=== PATIENT | male | born 1980 | race Caucasian/White ===

== ENCOUNTER → 2017-03-11 | Outpatient (CLI) | payer OTHER | LOC: M SMT 09:32 | PROVIDERS: ATTEND Urology | DX: E29.1 Testicular hypofunction (principal) ==

== ENCOUNTER → 2017-04-24 | Outpatient (CLI) | payer OTHER | LOC: M SMT 15:34 | PROVIDERS: ATTEND Urology | DX: E29.1 Testicular hypofunction (principal) ==

== ENCOUNTER → 2017-08-22 | Outpatient (CLI) | payer OTHER | LOC: M LAB 09:01 | PROVIDERS: ATTEND Nurse Practitioner Women's Health | DX: E29.1 Testicular hypofunction (principal) ==

== ENCOUNTER → 2017-11-21 | Outpatient (CLI) | payer OTHER | LOC: M WUC 14:56 | DX: E29.1 Testicular hypofunction (principal) | CPT/HCPCS: 84403 ==

== ENCOUNTER → 2017-11-28 | Outpatient (CLI) | payer OTHER ==
[2017-11-30 08:36] LABS: TESTOSTERONE 1288 NG/DL (241-827)
== END ==
LOC: M WUC 12:25
DX: E29.1 Testicular hypofunction (principal)
CPT/HCPCS: 84403

== ENCOUNTER → 2017-12-04 | Outpatient (CLI) | payer OTHER ==
[2017-12-04 16:39] LABS: HEMATOCRIT 47.5 % (42.0-52.0)
[2017-12-04 16:50] LABS: PROSTATIC SPECIFIC AG MONITOR 0.63 NG/ML (< 4.0)
[2017-12-08 00:08] LABS: TESTOSTERONE FREE (DIRECT) 9.9 pg/mL (8.7-25.1)
== END ==
LOC: M WUC 11:15
DX: E29.1 Testicular hypofunction (principal)
CPT/HCPCS: 84403

== ENCOUNTER → 2017-12-19 | Outpatient (CLI) | payer OTHER ==
[2017-12-21 10:11] LABS: TESTOSTERONE 1357 NG/DL (241-827)
== END ==
LOC: M WUC 10:08
DX: E29.1 Testicular hypofunction (principal)
CPT/HCPCS: 84403

== ENCOUNTER → 2018-01-01 | Outpatient (CLI) | payer OTHER | LOC: M RAD 14:51 | DX: N20.0 Calculus of kidney (principal) ==

== ENCOUNTER → 2018-03-09 | Outpatient (CLI) | payer OTHER ==
[2018-03-09 12:38] LABS: TESTOSTERONE 1444 NG/DL (241-827)
== END ==
LOC: M WUC 10:15
DX: E29.1 Testicular hypofunction (principal)
CPT/HCPCS: 84403

== ENCOUNTER → 2018-05-13 | Outpatient (CLI) | payer OTHER ==
[2018-05-13 18:03] LABS: HEMATOCRIT 48.3 % (42.0-52.0)
[2018-05-13 18:53] LABS: PSA SCREENING 0.82 NG/ML (< 4.0)
[2018-05-13 18:57] LABS: TESTOSTERONE 517 NG/DL (241-827)
== END ==
LOC: M SMT 13:52
DX: E29.1 Testicular hypofunction (principal)
CPT/HCPCS: 84403

== ENCOUNTER → 2018-05-17 | Outpatient (CLI) | payer OTHER ==
[2018-05-17 20:02] LABS: TESTOSTERONE 870 NG/DL (241-827)
== END ==
LOC: M WUC 16:29
DX: E29.1 Testicular hypofunction (principal)
CPT/HCPCS: 84403